=== PATIENT | male | born 1980 | race Asian ===

== ENCOUNTER 2017-03-24 08:28 | Emergency (ER) | payer OTHER ==
[~2017-03-24] VITALS: Ht 160 cm; Wt 77.1 kg
[2017-03-24 09:08] LABS: PLATELET COUNT 226 K/uL (142-355)
[2017-03-24 09:19] LABS: SODIUM 132 mmol/L (136-145)
== END 2017-03-24 10:17 | disposition home or self-care (01) ==
LOC: ED 08:28
DX: T67.5XXA Heat exhaustion, unspecified, initial encounter (principal); R25.2 Cramp and spasm; E86.0 Dehydration
CPT/HCPCS: 80053; 85027; 99281

== ENCOUNTER 2017-05-23 11:04 | Emergency (ER) | payer OTHER ==
[~2017-05-23] VITALS: Ht 165.1 cm; Wt 79.4 kg
== END 2017-05-23 13:25 | disposition home or self-care (01) ==
LOC: ED 11:04
DX: R11.2 Nausea with vomiting, unspecified (principal)
CPT/HCPCS: 99282

== ENCOUNTER 2018-01-25 04:42 | Emergency (ER) | payer OTHER ==
[~2018-01-25] VITALS: Ht 162.6 cm; Wt 79.4 kg
== END 2018-01-25 05:58 | disposition home or self-care (01) ==
LOC: ED 04:42
DX: S00.93XA Contusion of unspecified part of head, initial encounter (principal); W01.190A Fall on same level from slipping, tripping and stumbling with subsequent striking against furniture, initial encounter
CPT/HCPCS: 96372; 99283; J1885

== ENCOUNTER 2018-05-17 13:17 | Emergency (ER) | payer OTHER ==
[~2018-05-17] VITALS: Ht 162.6 cm; Wt 79.4 kg
[2018-05-17 13:20] VITALS: TEMP 98.1
[2018-05-17 15:30] VITALS: BP 155/73
== END 2018-05-17 15:45 | disposition home or self-care (01) ==
LOC: ED 13:17
DX: R51 Headache (principal)
CPT/HCPCS: 36415; 96374; 99284; J1885

== ENCOUNTER 2018-06-18 17:26 | Emergency (ER) | payer OTHER ==
[~2018-06-18] VITALS: Ht 165.1 cm; Wt 79.4 kg
[2018-06-18 17:30] VITALS: TEMP 97.7
[2018-06-18 18:19] VITALS: BP 118/76
== END 2018-06-18 18:30 | disposition home or self-care (01) ==
LOC: ED 17:26
DX: A08.4 Viral intestinal infection, unspecified (principal)
CPT/HCPCS: 99283

== ENCOUNTER 2020-07-23 05:53 | Emergency (ER) | payer OTHER ==
[~2020-07-23] VITALS: Ht 165.1 cm; Wt 79.4 kg
[2020-07-23 06:18] VITALS: BP 145/101; TEMP 98.7
== END 2020-07-23 07:14 | disposition home or self-care (01) ==
LOC: ED 05:53
PROC: 0HQ1XZZ Repair Face Skin, External Approach (ICD-10-PCS; principal; 2020-07-23)
DX: S41.112A Laceration without foreign body of left upper arm, initial encounter (principal); S71.112A Laceration without foreign body, left thigh, initial encounter; S01.81XA Laceration without foreign body of other part of head, initial encounter; W54.0XXA Bitten by dog, initial encounter; Y92.89 Other specified places as the place of occurrence of the external cause
CPT/HCPCS: 99282

== ENCOUNTER 2020-08-04 13:28 | Emergency (ER) | payer OTHER | END 2020-08-04 13:41 | disposition home or self-care (01) | LOC: ED 13:28 | DX: Z48.02 Encounter for removal of sutures (principal) ==

== ENCOUNTER 2020-08-26 11:42 | Emergency (ER) | payer OTHER ==
[~2020-08-26] VITALS: Ht 165.1 cm; Wt 79.4 kg
[2020-08-26 12:53] VITALS: BP 144/93; TEMP 97.8
== END 2020-08-26 12:53 | disposition home or self-care (01) ==
LOC: ED 11:42
DX: A08.39 Other viral enteritis (principal)
CPT/HCPCS: 99282

== ENCOUNTER 2021-01-26 21:19 | Emergency (ER) | payer OTHER ==
[~2021-01-26] VITALS: Ht 165.1 cm; Wt 77.1 kg
[2021-01-26 22:58] LABS: PLATELET COUNT 216 K/uL (142-355)
[2021-01-26 23:55] VITALS: BP 152/101; TEMP 97.2
== END 2021-01-26 23:55 | disposition short-term general hospital (02) ==
LOC: ED 21:19
PROVIDERS: Emergency Medicine Emergency Medical Services
DX: S02.82XA Fracture of other specified skull and facial bones, left side, initial encounter for closed fracture (principal); S02.832A Fracture of medial orbital wall, left side, initial encounter for closed fracture; S02.32XA Fracture of orbital floor, left side, initial encounter for closed fracture; S02.2XXA Fracture of nasal bones, initial encounter for closed fracture; Y00.XXXA Assault by blunt object, initial encounter; Y92.488 Other paved roadways as the place of occurrence of the external cause
CPT/HCPCS: 36415; 80320; 85027; 96360; 96361; 96365; 96375; 96376; 99285; J0696; J1200; J2270; J2405